=== PATIENT | male | born 1985 | race African-American/Black ===

== ENCOUNTER 2016-04-12 13:53 | Inpatient (IN) | payer BC ==
[2016-04-12 15:24] VITALS: BMI 28.3
--- NOTE | 2016-04-12 17:21 | HP ---
Admission [facility] - [facility] Allergies/Adverse Reactions: Allergies Allergy/AdvReac Type Severity Reaction Status Date / Time Penicillins Allergy Severe Swelling Verified 04/12/16 17:05 - Ebola screening Have you traveled outside of the country in the last 21 days: No Have you had contact with anyone from an Ebola affected area: No Have you been sick,other than usual withdrawal symptoms: No Do you have a fever: No Patient History - Patient Medical History Hx Anemia: No Hx Asthma: No Hx Chronic Obstructive Pulmonary Disease (COPD): No Hx Cancer: No Hx Cardiac Disorders: No Hx Congestive Heart Failure: No Hx Hypertension: No Hx Hypercholesterolemia: No Hx Pacemaker: No HX Cerebrovascular Accident: No Hx Seizures: No Hx Dementia: No Hx Diabetes: No Hx Gastrointestinal Disorders: No Hx Liver Disease: No Hx Genitourinary Disorders: No Hx Sexually Transmitted Disorders: No Hx Renal Disease (ESRD): No Hx Thyroid Disease: No Hx Human Immunodeficiency Virus (HIV): No Hx Hepatitis C: No Hx Depression: Yes Hx Suicide Attempt: No Hx Schizophrenia: No - Patient Surgical History Past Surgical History: No - PPD History Previous Implant?: Yes Documented Results: Negative w/o proof Implanted On Prior R Admission?: No Date: 03/06/16 Results: 0 mm - Reproductive History Patient is a Female of Child Bearing Age (11 -55 yrs old): No - Smoking Cessation Smoking history: Current every day smoker Have you smoked in the past 12 months: Yes Aproximately how many cigarettes per day: 20 Cigars Per Day: 0 Hx Chewing Tobacco Use: No Initiated information on smoking cessation: Yes 'Breaking Loose' booklet given: 04/12/16 - Substance & Tx. History Hx Alcohol Use: Yes Hx Substance Use: Yes Substance Use Type: Alcohol, Cocaine, Marijuana Hx Substance Use Treatment: Yes (I - 2015) - Substances Abused Alcohol Route: Oral Frequency: Daily Amount used: 1 liter deepali Age of first use: 13 Date of Last Use: 04/12/16 Crack Route: Smoking Frequency: Daily Amount used: 2 eightballs Age of first use: 18 Date of Last Use: 04/10/16 Marijuana/Hashish Route: Smoking Frequency: Daily Amount used: 1 blunt Age of first use: 13 Date of Last Use: 04/11/16 Admission Physical Exam [facility] - Vital Signs Vital Signs: Vital Signs - 24 hr 04/12/16 15:22 Temperature 97.5 F L Pulse Rate 45 L Respiratory 18 Rate Blood Pressure 117/65 BHS Breath Alcohol Content Breath Alcohol Content: 0 Urine Drug Screen - Results Drug Screen Negative: No Urine Drug Screen Results: THC-Marijuana, RHETT-Cocaine
--- NOTE | 2016-04-12 17:30 | HP ---
CIWA Score - CIWA Score Nausea/Vomitin Muscle Tremors: 3 Anxiety: 3 Agitation: 2 Paroxysmal Sweats: 3 Orientation: 0-Oriented Tacttile Disturbances: 1-Very Mild Itch/Numbness Auditory Disturbances: 0-None Visual Disturbances: 0-None Headache: 0-None Present CIWA-Ar Total Score: 15 Admission ROS [facility] - HPI Chief Complaint: I need help to stop drinking etoh and using crack Allergies/Adverse Reactions: Allergies Allergy/AdvReac Type Severity Reaction Status Date / Time Penicillins Allergy Severe Swelling Verified 04/12/16 17:05 History of Present Illness: 31 y/o m pt with a h/o chronic alcoholism and crack abuse seeking detox. Exam Limitations: No Limitations - Ebola screening Have you traveled outside of the country in the last 21 days: No Have you had contact with anyone from an Ebola affected area: No Have you been sick,other than usual withdrawal symptoms: No Do you have a fever: No - Review of Systems Constitutional: Malaise, Night Sweats, Changes in sleep, Unintentional Wgt. Loss (30 lbs x 2 months) EENT: reports: No Symptoms Reported Respiratory: reports: No Symptoms reported Cardiac: reports: No Symptoms Reported GI: reports: Indigestion : reports: Frequency Musculoskeletal: reports: No Symptoms Reported Integumentary: reports: No Symptoms Reported Neuro: reports: Headache, Tremors Endocrine: reports: No Symptoms Reported Hematology: reports: No Symptoms Reported Psychiatric: reports: Anxious, Depressed Other Systems: Reviewed and Negative Patient History - Patient Medical History Hx Anemia: No Hx Asthma: No Hx Chronic Obstructive Pulmonary Disease (COPD): No Hx Cancer: No Hx Cardiac Disorders: No Hx Congestive Heart Failure: No Hx Hypertension: No Hx Hypercholesterolemia: No Hx Pacemaker: No HX Cerebrovascular Accident: No Hx Seizures: No Hx Dementia: No Hx Diabetes: No Hx Gastrointestinal Disorders: No Hx Liver Disease: No Hx Genitourinary Disorders: No Hx Sexually Transmitted Disorders: No Hx Renal Disease (ESRD): No Hx Thyroid Disease: No Hx Human Immunodeficiency Virus (HIV): No Hx Hepatitis C: No Hx Depression: Yes Hx Suicide Attempt: No Hx Schizophrenia: No - Patient Surgical History Past Surgical History: No - PPD History Previous Implant?: Yes Documented Results: Negative w/o proof Implanted On Prior R Admission?: No Date: 03/06/16 Results: 0 mm - Reproductive History Patient is a Female of Child Bearing Age (11 -55 yrs old): No - Smoking Cessation Smoking history: Current every day smoker Have you smoked in the past 12 months: Yes Aproximately how many cigarettes per day: 20 Cigars Per Day: 0 Hx Chewing Tobacco Use: No Initiated information on smoking cessation: Yes 'Breaking Loose' booklet given: 04/12/16 - Substance & Tx. History Hx Alcohol Use: Yes Hx Substance Use: Yes Substance Use Type: Alcohol, Cocaine, Marijuana Hx Substance Use Treatment: Yes ([facility]) - Substances Abused Alcohol Route: Oral Frequency: Daily Amount used: 1 liter deepali Age of first use: 13 Date of Last Use: 04/12/16 Crack Route: Smoking Frequency: Daily Amount used: 2 eightballs Age of first use: 18 Date of Last Use: 04/10/16 Marijuana/Hashish Route: Smoking Frequency: Daily Amount used: 1 blunt Age of first use: 13 Date of Last Use: 04/11/16 Family Disease History - Family Disease History Family Disease History: Diabetes: Grandparent, Other: Father (htn ) Admission Physical Exam [facility] - Vital Signs Vital Signs: Vital Signs - 24 hr 04/12/16 15:22 Temperature 97.5 F L Pulse Rate 45 L Respiratory 18 Rate Blood Pressure 117/65 31 y/o m pt aox3 in nad ambulating - Physical General Appearance: Yes: Appropriately Dressed, Anxious HEENTM: Yes: EOMI, Hearing grossly Normal, Normocephalic, Normal Voice, CHAI Respiratory: Yes: Chest Non-Tender, Lungs Clear, Normal Breath Sounds, No Respiratory Distress Neck: Yes: Supple Breast: Yes: Within Normal Limits Cardiology: Yes: Regular Rhythm, Regular Rate, S1, S2 Abdominal: Yes: Non Tender, Flat, Soft, Increased Bowel Sounds Genitourinary: Yes: Frequency Back: Yes: Decreased Range of Motion Musculoskeletal: Yes: Back pain Extremities: Yes: Tremors Neurological: Yes: sports recruiter II-XII NML intact, Fully Oriented, Alert, Motor Strength 5/5, Normal Response, Depressed Affect Integumentary: Yes: Moist Lymphatic: Yes: Within Normal Limits - Diagnostic (1) Alcohol dependence with uncomplicated withdrawal Current Visit: Yes Status: Chronic (2) Cannabis abuse Current Visit: Yes Status: Chronic (3) Crack cocaine use Current Visit: Yes Status: Chronic (4) Nicotine dependence Current Visit: Yes Status: Chronic Qualifiers: Nicotine product type: cigarettes Substance use status: uncomplicated Qualified Code(s): F17.210 - Nicotine dependence, cigarettes, uncomplicated (5) Depressed Current Visit: Yes Status: Chronic Qualifiers: Depression Type: unspecified Qualified Code(s): F32.9 - Major depressive disorder, single episode, unspecified (6) Burn of lip Current Visit: Yes Status: Acute Cleared for Admission [facility] - Detox or Rehab [facility] Level of Care: Medically Managed Detox Regimen/Protocol: Librium [facility] Breath Alcohol Content Breath Alcohol Content: 0 Urine Drug Screen - Results Drug Screen Negative: No Urine Drug Screen Results: THC-Marijuana, RHETT-Cocaine
[2016-04-12] MEDS ORDERED: MENTHOL/PHENOL 1 EACH UD MM PRN (17:39)
[2016-04-12] MEDS ORDERED: ACETAMINOPHEN 325 MG TABLET (FP) PO PRN (17:39)
[2016-04-12] MEDS ORDERED: MAG HYDROX/AL HYDROX/SIMETH 30 ML UNIT-DOSE CUP PO PRN (17:39)
[2016-04-12] MEDS ORDERED: hydrOXYzine PAMOATE 25 MG CAPSULE (FP) PO PRN (17:39)
[2016-04-12] MEDS ORDERED: MAGNESIUM CITRATE 300 ML BOTTLE PO PRN (17:39)
[2016-04-12] MEDS ORDERED: IBUPROFEN 400 MG TABLET (FP) PO PRN (17:39)
[2016-04-12] MEDS ORDERED: guaiFENesin/D-METHORPHAN HB 10 ML UNIT-DOSE CUPS PO PRN (17:39)
[2016-04-12] MEDS ORDERED: P-EPHED 60MG/TRIPROLIDI 2.5MG TABLET PO PRN (17:39)
[2016-04-12] MEDS ORDERED: MAGNESIUM HYDROX 2400MG/30ML ORAL SUSPENSION 30 ML CUP PO PRN (17:39)
[2016-04-12] MEDS ORDERED: chlordiazePOXIDE HCL 25 MG CAPSULE PO PRN (17:39)
[2016-04-12] MEDS ORDERED: LOPERAMIDE HCL 2 MG CAPSULE PO PRN (17:39)
[2016-04-12] MEDS ORDERED: NICOTINE POLACRILEX 4 MG GUM BC PRN (17:39)
[2016-04-12] MEDS: THIAMINE HCL 100 MG TABLET (FP) PO SCH (22:20)
[2016-04-12] MEDS: diphenhydrAMINE HCL 50 MG CAPSULE PO PRN (22:20)
[2016-04-12] MEDS: chlordiazePOXIDE HCL 25 MG CAPSULE PO SCH (22:20)
[2016-04-12 23:04] LABS: URINE APPEARANCE CLEAR; URINE BILIRUBIN NEGATIVE (NEGATIVE); URINE BLOOD NEGATIVE (NEGATIVE); URINE COLOR DKYELLOW; URINE GLUCOSE (UA) 2+ (NEGATIVE); URINE KETONE TRACE (NEGATIVE); URINE LEUK ESTERASE NEGATIVE (NEGATIVE); URINE NITRITE NEGATIVE (NEGATIVE); URINE PROTEIN NEGATIVE (NEGATIVE); URINE UROBILINOGEN 4.0 E.U/dl E.U./dl (0.2-1.0)
[2016-04-13] MEDS: chlordiazePOXIDE HCL 25 MG CAPSULE PO SCH ×4 (06:13→22:29)
[2016-04-13 10:08] LABS: MCH 29.7 pg (25.7-33.7); MCHC 31.6 g/dl (32.0-35.9); MEAN PLT VOLUME 10.1 fl (7.5-11.1); PLATELET COUNT 171 K/MM3 (134-434); RDW 12.9 % (11.9-15.9); WHITE BLOOD COUNT 3.4 K/mm3 (4.0-10.0)
[2016-04-13] MEDS: NICOTINE 21 MG/24 HOURS TOPICAL PATCH TD SCH (10:11)
[2016-04-13] MEDS: PRENATAL VITAMINS W/ FOLIC ACID TABLET (FP) PO SCH (10:11)
[2016-04-13 10:29] LABS: ALBUMIN 4.3 g/dl (3.4-5.0); BILIRUBIN,TOTAL 1.4 mg/dL (0.2-1.0); CALCIUM 9.1 mg/dL (8.5-10.1); CREATININE 1.4 mg/dL (0.7-1.3); TOT PROT 7.4 g/dl (6.4-8.2)
--- NOTE | 2016-04-13 10:31 | PN ---
[facility] CIWA - CIWA Score Nausea/Vomitin-No Nausea/No Vomiting Muscle Tremors: 4-Moderate,w/Arms Extend Anxiety: 4-Mod. Anxious/Guarded Agitation: 4-Moderately Restless Paroxysmal Sweats: 1-Minimal Palms Moist Orientation: 0-Oriented Tacttile Disturbances: 3-Moderate Itch/Numb/Burn Auditory Disturbances: 0-None Visual Disturbances: 0-None Headache: 0-None Present CIWA-Ar Total Score: 16 S Progress Note (SOAP) Subjective: ANXIETY, CHILLS,SWEATS,INTERMITTENT SLEEP Objective: 04/13/16 10:28 Vital Signs Temperature 96.5 F L 04/13/16 06:31 Pulse Rate 41 L 04/13/16 06:31 Respiratory Rate 16 04/13/16 06:31 Blood Pressure 108/66 04/13/16 06:31 O2 Sat by Pulse Oximetry (%) Laboratory Last Values WBC 3.4 K/mm3 (4.0-10.0) L 04/13/16 06:20 RBC 4.64 M/mm3 (4.00-5.60) 04/13/16 06:20 Hgb 13.8 GM/dL (11.7-16.9) 04/13/16 06:20 Hct 43.6 % (35.4-49) 04/13/16 06:20 MCV 94.0 fl (80-96) 04/13/16 06:20 MCHC 31.6 g/dl (32.0-35.9) L 04/13/16 06:20 RDW 12.9 % (11.9-15.9) 04/13/16 06:20 Plt Count 171 K/MM3 (134-434) 04/13/16 06:20 MPV 10.1 fl (7.5-11.1) 04/13/16 06:20 Urine Color Dkyellow 04/12/16 21:53 Urine Appearance Clear 04/12/16 21:53 Urine pH 5.0 (5.0-8.0) 04/12/16 21:53 Ur Specific [place] 1.032 (1.001-1.035) 04/12/16 21:53 Urine Protein Negative (NEGATIVE) 04/12/16 21:53 Urine Glucose (UA) 2+ (NEGATIVE) H 04/12/16 21:53 Urine Ketones Trace (NEGATIVE) H 04/12/16 21:53 Urine Blood Negative (NEGATIVE) 04/12/16 21:53 Urine Nitrite Negative (NEGATIVE) 04/12/16 21:53 Urine Bilirubin Negative (NEGATIVE) 04/12/16 21:53 Urine Urobilinogen 4.0 e.u/dl E.U./dl (0.2-1.0) 04/12/16 21:53 Ur Leukocyte Esterase Negative (NEGATIVE) 04/12/16 21:53 Assessment: 04/13/16 10:28 WITHDRAWAL SX Plan: CONTINUE DETOX INCREASE PO FLUIDS.
[2016-04-13 11:38] LABS: HIV 1 & 2 AB NEGATIVE; HIV 1 AGp24 NEGATIVE
--- NOTE | 2016-04-13 12:28 | CONSULT ---
[facility] Psychiatric Consult - Data Date of interview: 04/13/16 Admission source: [facility] Identifying data: First admission to [facility] for this 31 y/o AA male seeking detox treatment on for alcohol,cocaine (crack) and marijuana dependence.Patient is single,a father of two,domiciled,unemployed and supported on Public Assistance. Substance Abuse History: - Smoking Cessation. Smoking history: Current every day smoker. Have you smoked in the past 12 months: Yes. Aproximately how many cigarettes per day: 20. Cigars Per Day: 0. Hx Chewing Tobacco Use: No. Initiated information on smoking cessation: Yes. 'Breaking Loose' booklet given : 04/12/16. - Substance & Tx. History. Hx Alcohol Use: Yes. Hx Substance Use : Yes. Substance Use Type: Alcohol, Cocaine, Marijuana. Hx Substance Use Treatment: Yes ([facility]). - Substances Abused. Alcohol. Route: Oral. Frequency: Daily. Amount used: 1 liter deepali. Age of first use: 13. Date of Last Use: 04/12/16. Crack. Route: Smoking. Frequency: Daily. Amount used : 2 eightballs. Age of first use: 18. Date of Last Use: 04/10/16. Marijuana/Hashish. Route: Smoking. Frequency: Daily. Amount used: 1 blunt. Age of first use: 13. Date of Last Use: 04/11/16. Confirmed by the patient in this interview. Medical History: Patient endorses good general health. Psychiatric History: History of one psychiatric hospitalization at [facility].Diagnosed with MDD.Mr North reports that he gets his psychiatric outpatient services at the [facility] in the [place].Not on any psychotropic medications.Patient denies history of suicide attempts. Physical/Sexual Abuse/Trauma History: No history. Additional Comment: Urine Drug Screen Results: THC-Marijuana, RHETT-Cocaine.Noted. Mental Status Exam - Mental Status Exam Alert and Oriented to: Time, Place, Person Cognitive Function: Good Patient Appearance: Well Groomed Mood: Hopeful, Euthymic Affect: Normal Range Patient Behavior: Fatigued, Appropriate, Cooperative Speech Pattern: Clear Voice Loudness: Normal Thought Process: Goal Oriented Thought Disorder: Not Present Hallucinations: Denies Suicidal Ideation: Denies Homicidal Ideation: Denies Insight/Judgement: Poor Sleep: Poorly, Difficulty falling asleep Appetite: Good Muscle strength/Tone: Normal Gait/Station: Normal Psychiatric Findings - Problem List (Stacy 1, 2,3) (1) Alcohol dependence with uncomplicated withdrawal Current Visit: Yes Status: Acute (2) Cannabis abuse Current Visit: Yes Status: Acute (3) Nicotine dependence Current Visit: Yes Status: Acute Qualifiers: Nicotine product type: cigarettes Substance use status: uncomplicated Qualified Code(s): F17.210 - Nicotine dependence, cigarettes, uncomplicated (4) Cocaine dependence Current Visit: Yes Status: Acute (5) Substance induced mood disorder Current Visit: Yes Status: Acute (6) Insomnia Current Visit: Yes Status: Chronic - Initial Treatment Plan Initial Treatment Plan: Psychoeducation.Detoxification.Zolpidem 10 mg po hs prn.Patient made aware of risk of parasomnias.He agrees with this plan.Observation.
[2016-04-13] MEDS ORDERED: BACITRACIN 0.9 GM PACKET TP ONE (14:12)
--- NOTE | 2016-04-13 16:12 | EKG ---
Test Reason : Blood Pressure : / mmHG Vent. Rate : 048 BPM Atrial Rate : 048 BPM P-R Int : 184 ms QRS Dur : 090 ms QT Int : 460 ms P-R-T Axes : 072 057 054 degrees QTc Int : 410 ms SINUS BRADYCARDIA WITH FREQUENT PREMATURE VENTRICULAR COMPLEXES OTHERWISE NORMAL ECG NO PREVIOUS ECGS AVAILABLE Confirmed by ROXANA MORROW, GOPI ([id number]) on 04/13/2016 4:12:08 PM Referred By: Confirmed By:GOPI SCHMIDT MD
[2016-04-13] MEDS: THIAMINE HCL 100 MG TABLET (FP) PO SCH (22:29)
[2016-04-13] MEDS: diphenhydrAMINE HCL 50 MG CAPSULE PO PRN (22:29)
[2016-04-14] MEDS: chlordiazePOXIDE HCL 25 MG CAPSULE PO SCH ×3 (05:50→17:26)
[2016-04-14] MEDS: PRENATAL VITAMINS W/ FOLIC ACID TABLET (FP) PO SCH (10:19)
[2016-04-14] MEDS: NICOTINE 21 MG/24 HOURS TOPICAL PATCH TD SCH (10:19)
--- NOTE | 2016-04-14 10:24 | PN ---
[facility] CIWA - CIWA Score Nausea/Vomitin-No Nausea/No Vomiting Muscle Tremors: 3 Anxiety: 4-Mod. Anxious/Guarded Agitation: 4-Moderately Restless Paroxysmal Sweats: 1-Minimal Palms Moist Orientation: 0-Oriented Tacttile Disturbances: 3-Moderate Itch/Numb/Burn Auditory Disturbances: 0-None Visual Disturbances: 0-None Headache: 0-None Present CIWA-Ar Total Score: 15 S Progress Note (SOAP) Subjective: ANXIETY,SWEATS/CHILLS,IRRITABILITY,FATIGUE. Objective: 04/14/16 10:23 Vital Signs Temperature 95.9 F L 04/14/16 09:53 Pulse Rate 63 04/14/16 09:53 Respiratory Rate 18 04/14/16 09:53 Blood Pressure 137/82 04/14/16 09:53 O2 Sat by Pulse Oximetry (%) Laboratory Last Values WBC 3.4 K/mm3 (4.0-10.0) L 04/13/16 06:20 RBC 4.64 M/mm3 (4.00-5.60) 04/13/16 06:20 Hgb 13.8 GM/dL (11.7-16.9) 04/13/16 06:20 Hct 43.6 % (35.4-49) 04/13/16 06:20 MCV 94.0 fl (80-96) 04/13/16 06:20 MCHC 31.6 g/dl (32.0-35.9) L 04/13/16 06:20 RDW 12.9 % (11.9-15.9) 04/13/16 06:20 Plt Count 171 K/MM3 (134-434) 04/13/16 06:20 MPV 10.1 fl (7.5-11.1) 04/13/16 06:20 Sodium 143 mmol/L (136-145) 04/13/16 06:20 Potassium 4.3 mmol/L (3.5-5.1) 04/13/16 06:20 Chloride 108 mmol/L (98-107) H 04/13/16 06:20 Carbon Dioxide 28 mmol/L (21-32) 04/13/16 06:20 Anion Gap 7 (8-16) L 04/13/16 06:20 BUN 19 mg/dL (7-18) H 04/13/16 06:20 Creatinine 1.4 mg/dL (0.7-1.3) H 04/13/16 06:20 Creat Clearance w eGFR 59.92 (>60) 04/13/16 06:20 Random Glucose 87 mg/dL (74-106) 04/13/16 06:20 Calcium 9.1 mg/dL (8.5-10.1) 04/13/16 06:20 Total Bilirubin 1.4 mg/dL (0.2-1.0) H 04/13/16 06:20 AST 14 U/L (15-37) L 04/13/16 06:20 ALT 22 U/L (12-78) 04/13/16 06:20 Alkaline Phosphatase 74 U/L (45-117) 04/13/16 06:20 Total Protein 7.4 g/dl (6.4-8.2) 04/13/16 06:20 Albumin 4.3 g/dl (3.4-5.0) 04/13/16 06:20 Urine Color Dkyellow 04/12/16 21:53 Urine Appearance Clear 04/12/16 21:53 Urine pH 5.0 (5.0-8.0) 04/12/16 21:53 Ur Specific [place] 1.032 (1.001-1.035) 04/12/16 21:53 Urine Protein Negative (NEGATIVE) 04/12/16 21:53 Urine Glucose (UA) 2+ (NEGATIVE) H 04/12/16 21:53 Urine Ketones Trace (NEGATIVE) H 04/12/16 21:53 Urine Blood Negative (NEGATIVE) 04/12/16 21:53 Urine Nitrite Negative (NEGATIVE) 04/12/16 21:53 Urine Bilirubin Negative (NEGATIVE) 04/12/16 21:53 Urine Urobilinogen 4.0 e.u/dl E.U./dl (0.2-1.0) 04/12/16 21:53 Ur Leukocyte Esterase Negative (NEGATIVE) 04/12/16 21:53 RPR Titer Nonreactive (NONREACTIVE) 04/13/16 06:20 HIV 1&2 Antibody Screen Negative 04/12/16 17:15 HIV P24 Antigen Negative 04/12/16 17:15 Assessment: 04/14/16 10:23 WITHDRAWAL SX Plan: CONTINUE DETOX
[2016-04-14] MEDS: THIAMINE HCL 100 MG TABLET (FP) PO SCH (22:03)
[2016-04-14] MEDS: chlordiazePOXIDE 5 MG CAPSULE PO SCH (22:03)
[2016-04-14] MEDS: ZOLPIDEM TARTRATE 10 MG TABLET (PARK CARE ONLY) PO PRN (22:06)
[2016-04-15] MEDS: chlordiazePOXIDE 5 MG CAPSULE PO SCH ×3 (05:26→17:07)
[2016-04-15] MEDS: PRENATAL VITAMINS W/ FOLIC ACID TABLET (FP) PO SCH (10:20)
[2016-04-15] MEDS: NICOTINE 21 MG/24 HOURS TOPICAL PATCH TD SCH (10:21)
--- NOTE | 2016-04-15 10:23 | PN ---
BHS Progress Note (SOAP) Subjective: ANXIETY,SWEATS,IRRITABILITY. Objective: 04/15/16 10:22 Vital Signs Temperature 96.5 F L 04/15/16 06:37 Pulse Rate 58 L 04/15/16 06:37 Respiratory Rate 18 04/15/16 06:37 Blood Pressure 129/79 04/15/16 06:37 O2 Sat by Pulse Oximetry (%) Assessment: 04/15/16 10:22 WITHDRAWAL SX Plan: CONTINUE DETOX
[2016-04-15 21:49] VITALS: BP 129/72; PULSE 64; TEMP 97.5
[2016-04-15] MEDS: chlordiazePOXIDE HCL 10 MG CAPSULE PO SCH (22:06)
[2016-04-15] MEDS: THIAMINE HCL 100 MG TABLET (FP) PO SCH (22:07)
[2016-04-15] MEDS: diphenhydrAMINE HCL 50 MG CAPSULE PO PRN (22:08)
[2016-04-15] MEDS: ZOLPIDEM TARTRATE 10 MG TABLET (PARK CARE ONLY) PO PRN (23:04)
[2016-04-16] MEDS: chlordiazePOXIDE HCL 10 MG CAPSULE PO SCH (06:45)
--- NOTE | 2016-04-16 10:12 | DS ---
[facility] Detox Discharge Summary Admission Date: 04/12/16 Discharge Date: 04/16/16 - History Present History: Alcohol Dependence, Cannabis Dependence, Cocaine Dependence Pertinent Past History: smoker - Physical Exam Results Vital Signs: Vital Signs Temperature 97.5 F L 04/15/16 21:49 Pulse Rate 64 04/15/16 21:49 Respiratory Rate 18 04/16/16 03:30 Blood Pressure 129/72 04/15/16 21:49 O2 Sat by Pulse Oximetry (%) Laboratory Last Values WBC 3.4 K/mm3 (4.0-10.0) L 04/13/16 06:20 RBC 4.64 M/mm3 (4.00-5.60) 04/13/16 06:20 Hgb 13.8 GM/dL (11.7-16.9) 04/13/16 06:20 Hct 43.6 % (35.4-49) 04/13/16 06:20 MCV 94.0 fl (80-96) 04/13/16 06:20 MCHC 31.6 g/dl (32.0-35.9) L 04/13/16 06:20 RDW 12.9 % (11.9-15.9) 04/13/16 06:20 Plt Count 171 K/MM3 (134-434) 04/13/16 06:20 MPV 10.1 fl (7.5-11.1) 04/13/16 06:20 Sodium 143 mmol/L (136-145) 04/13/16 06:20 Potassium 4.3 mmol/L (3.5-5.1) 04/13/16 06:20 Chloride 108 mmol/L (98-107) H 04/13/16 06:20 Carbon Dioxide 28 mmol/L (21-32) 04/13/16 06:20 Anion Gap 7 (8-16) L 04/13/16 06:20 BUN 19 mg/dL (7-18) H 04/13/16 06:20 Creatinine 1.4 mg/dL (0.7-1.3) H 04/13/16 06:20 Creat Clearance w eGFR 59.92 (>60) 04/13/16 06:20 Random Glucose 87 mg/dL (74-106) 04/13/16 06:20 Calcium 9.1 mg/dL (8.5-10.1) 04/13/16 06:20 Total Bilirubin 1.4 mg/dL (0.2-1.0) H 04/13/16 06:20 AST 14 U/L (15-37) L 04/13/16 06:20 ALT 22 U/L (12-78) 04/13/16 06:20 Alkaline Phosphatase 74 U/L (45-117) 04/13/16 06:20 Total Protein 7.4 g/dl (6.4-8.2) 04/13/16 06:20 Albumin 4.3 g/dl (3.4-5.0) 04/13/16 06:20 Urine Color Dkyellow 04/12/16 21:53 Urine Appearance Clear 04/12/16 21:53 Urine pH 5.0 (5.0-8.0) 04/12/16 21:53 Ur Specific [place] 1.032 (1.001-1.035) 04/12/16 21:53 Urine Protein Negative (NEGATIVE) 04/12/16 21:53 Urine Glucose (UA) 2+ (NEGATIVE) H 04/12/16 21:53 Urine Ketones Trace (NEGATIVE) H 04/12/16 21:53 Urine Blood Negative (NEGATIVE) 04/12/16 21:53 Urine Nitrite Negative (NEGATIVE) 04/12/16 21:53 Urine Bilirubin Negative (NEGATIVE) 04/12/16 21:53 Urine Urobilinogen 4.0 e.u/dl E.U./dl (0.2-1.0) 04/12/16 21:53 Ur Leukocyte Esterase Negative (NEGATIVE) 04/12/16 21:53 RPR Titer Nonreactive (NONREACTIVE) 04/13/16 06:20 HIV 1&2 Antibody Screen Negative 04/12/16 17:15 HIV P24 Antigen Negative 04/12/16 17:15 Pertinent Admission Physical Exam Findings: Withdrawal Symptoms - Treatment Hospital Course: Detox Protocol Followed, Detoxed Safely, Responded well, Discharged Condition Good - Medication Discharge Medications: Ambulatory Orders NK [No Known Home Medication] 04/12/16 - Diagnosis (1) Alcohol dependence with uncomplicated withdrawal Status: Acute (2) Cannabis abuse Status: Acute (3) Cocaine dependence Status: Acute (4) Nicotine dependence Status: Acute Qualifiers: Nicotine product type: cigarettes Substance use status: uncomplicated Qualified Code(s): F17.210 - Nicotine dependence, cigarettes, uncomplicated (5) Substance induced mood disorder Status: Acute (6) Crack cocaine use Status: Chronic (7) Insomnia Status: Chronic - AMA Did Patient Leave Against Medical Advice: No
== END 2016-04-16 08:58 | disposition home or self-care (01) | DRG 774 ==
LOC: YASAS 13:53 → Y3N 18:05
PROVIDERS: ADMIT Internal Medicine; ATTEND Internal Medicine
PROC: HZ2ZZZZ Detoxification Services for Substance Abuse Treatment (ICD-10-PCS; principal; 2016-04-12)
DX: F10.230 Alcohol dependence with withdrawal, uncomplicated (principal); F14.20 Cocaine dependence, uncomplicated; F12.10 Cannabis abuse, uncomplicated; F17.210 Nicotine dependence, cigarettes, uncomplicated; F19.24 Other psychoactive substance dependence with psychoactive substance-induced mood disorder; F32.9 Major depressive disorder, single episode, unspecified; G47.00 Insomnia, unspecified
CPT/HCPCS: 36415; 80053; 81003; 85027; 86593; 87389; 93005; 93010

== ENCOUNTER 2016-04-29 09:22 | Inpatient (IN) | payer BC ==
[2016-04-29 11:04] VITALS: BMI 28.0
--- NOTE | 2016-04-29 12:34 | HP ---
Admission [facility] Chief Complaint: FOR REHAB FROM ALCOHOL AND COCAINE Allergies/Adverse Reactions: Allergies Allergy/AdvReac Type Severity Reaction Status Date / Time Penicillins Allergy Severe Swelling Verified 04/29/16 11:27 History of Present Illness: THIS 31 YEARS OLD MALE WIH ALCOHOL AND COCAINE DEPENDENCE,LAST DETOX 04/12/16 TO 04/16/16 HAD INCISION AND DRAINAGE OF ABSCESS OF RIGHT LEG AND LEFT THIGH AT [facility] 0N 03/29/16 NICOTINE DEPENDENCE DEPRESSION LONGEST PERIOD OF SOBRIETY 2 YEARS Exam Limitations: No Limitations - Ebola screening Have you traveled outside of the country in the last 21 days: No Have you been sick,other than usual withdrawal symptoms: No - Review of Systems Constitutional: No Symptoms Reported EENT: reports: No Symptoms Reported Respiratory: reports: No Symptoms reported Cardiac: reports: No Symptoms Reported GI: reports: No Symptoms Reported : reports: No Symptoms Reported Musculoskeletal: reports: No Symptoms Reported Integumentary: reports: No Symptoms Reported, Other (ABSCESS OF RIGHT LEG AND LEFT THIGH) Neuro: reports: No Symptoms reported Endocrine: reports: No Symptoms Reported Hematology: reports: No Symptoms Reported Psychiatric: reports: other (DEPRESSION) Patient History - Patient Medical History Hx Anemia: No Hx Asthma: No Hx Chronic Obstructive Pulmonary Disease (COPD): No Hx Cancer: No Hx Cardiac Disorders: No Hx Congestive Heart Failure: No Hx Hypertension: No Hx Hypercholesterolemia: No Hx Pacemaker: No HX Cerebrovascular Accident: No Hx Seizures: No Hx Dementia: No Hx Diabetes: No Hx Gastrointestinal Disorders: No Hx Liver Disease: No Hx Genitourinary Disorders: No Hx Sexually Transmitted Disorders: No Hx Renal Disease (ESRD): No Hx Thyroid Disease: No Hx Human Immunodeficiency Virus (HIV): No (LAST 04/12/16 NEGATIVE) Hx Hepatitis C: No Hx Depression: Yes Hx Suicide Attempt: No Hx Schizophrenia: No Other Medical History: NO SUICIDAL,NO HOMICIDAL, - Patient Surgical History Past Surgical History: Yes Other Surgical History: DRAINAGSDE OF ABSCESS OF RIGHT LEG AND LEFT THIGH - PPD History Previous Implant?: Yes Documented Results: Negative w/proof Date: 04/14/16 Results: 0 mm PPD to be Administered?: No - Smoking Cessation Smoking history: Current every day smoker Have you smoked in the past 12 months: Yes Aproximately how many cigarettes per day: 20 Cigars Per Day: 0 Hx Chewing Tobacco Use: No Initiated information on smoking cessation: Yes 'Breaking Loose' booklet given: 04/29/16 - Substance & Tx. History Hx Alcohol Use: Yes Hx Substance Use: Yes Substance Use Type: Alcohol, Cocaine Hx Substance Use Treatment: Yes ([facility] 04/12/16 TO 04/16/16) - Substances Abused Alcohol Route: Oral Frequency: Daily Amount used: 2PINTS OF VODKA Age of first use: 14 Date of Last Use: 04/12/16 Cocaine Route: Inhalation Frequency: 3-6 times per week Amount used: 120$ Age of first use: 16 Date of Last Use: 04/27/16 Family Disease History - Family Disease History Family Disease History: Diabetes: Grandparent, Other: Father (htn ) Admission Physical Exam [facility] - Vital Signs Vital Signs: Vital Signs - 24 hr 04/29/16 11:02 Temperature 96.0 F L Pulse Rate 62 Respiratory 18 Rate Blood Pressure 123/70 - Physical General Appearance: Yes: Within Normal Limits HEENTM: Yes: Within Normal Limits Respiratory: Yes: Lungs Clear Neck: Yes: Within Normal Limits Breast: Yes: Within Normal Limits Cardiology: Yes: Within Normal Limits, Regular Rhythm, Regular Rate, S1, S2 Abdominal: Yes: Within Normal Limits, Normal Bowel Sounds, Non Tender, Flat, Soft Genitourinary: Yes: Within Normal Limits Back: Yes: Within Normal Limits Musculoskeletal: Yes: Within Normal Limits Extremities: Yes: Within Normal Limits Neurological: Yes: health and safety coordinator II-XII NML intact, Fully Oriented, Alert, Motor Strength 5/5 Integumentary: Yes: Within Normal Limits (S/P I&D OF ABSCESS RIGHT LEG AND LEFT THIGH) Lymphatic: Yes: Within Normal Limits - Diagnostic (1) Cocaine dependence Current Visit: No Status: Acute (2) Alcohol dependence Current Visit: Yes Status: Acute (3) Nicotine dependence Current Visit: No Status: Acute Qualifiers: Nicotine product type: cigarettes Substance use status: uncomplicated Qualified Code(s): F17.210 - Nicotine dependence, cigarettes, uncomplicated (4) History of incision and drainage Current Visit: Yes Status: Acute (5) Abscess Current Visit: Yes Status: Acute (6) Depressed Current Visit: No Status: Chronic Qualifiers: Depression Type: unspecified Qualified Code(s): F32.9 - Major depressive disorder, single episode, unspecified Cleared for Admission [facility] - Detox or Rehab Claeared for Rehab Admission: Yes [facility] Breath Alcohol Content Breath Alcohol Content: 0 Urine Drug Screen - Results Drug Screen Negative: No Urine Drug Screen Results: THC-Marijuana, RHETT-Cocaine, BZO-Benzodiazepines
[2016-04-29] MEDS ORDERED: guaiFENesin/D-METHORPHAN HB 10 ML UNIT-DOSE CUPS PO PRN (12:47)
[2016-04-29] MEDS ORDERED: MENTHOL/PHENOL 1 EACH UD MM PRN (12:47)
[2016-04-29] MEDS ORDERED: LOPERAMIDE HCL 2 MG CAPSULE PO PRN (12:47)
[2016-04-29] MEDS ORDERED: NICOTINE POLACRILEX 2 MG GUM BUC PRN (12:47)
[2016-04-29] MEDS ORDERED: P-EPHED 60MG/TRIPROLIDI 2.5MG TABLET PO PRN (12:47)
[2016-04-29] MEDS ORDERED: MAGNESIUM HYDROX 2400MG/30ML ORAL SUSPENSION 30 ML CUP PO PRN (12:47)
[2016-04-29] MEDS ORDERED: MAGNESIUM CITRATE 300 ML BOTTLE PO PRN (12:47)
[2016-04-29] MEDS ORDERED: MAG HYDROX/AL HYDROX/SIMETH 30 ML UNIT-DOSE CUP PO PRN (12:47)
[2016-04-29] MEDS ORDERED: hydrOXYzine PAMOATE 50 MG CAPSULE (FP) PO PRN (12:47)
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
[2016-04-29] MEDS: IBUPROFEN 400 MG TABLET (FP) PO PRN (15:38)
[2016-04-29] MEDS: CEPHALEXIN MONOHYDRATE 500 MG CAPSULE (UD) PO SCH (17:44)
[2016-04-29 19:06] LABS: URINE APPEARANCE CLEAR; URINE BLOOD NEGATIVE (NEGATIVE); URINE COLOR AMBER; URINE GLUCOSE (UA) 1+ (NEGATIVE); URINE KETONE TRACE (NEGATIVE); URINE NITRITE NEGATIVE (NEGATIVE); URINE UROBILINOGEN 4.0 E.U/dl E.U./dl (0.2-1.0)
[2016-04-29 19:14] LABS: URINE LEUK ESTERASE TRACE (NEGATIVE); URINE PROTEIN 1+ (NEGATIVE)
[2016-04-29 19:41] LABS: URINE MUCUS MANY; URINE RBC 6 /hpf (0-3); URINE WBC 1 /hpf (3-5)
[2016-04-29] MEDS: ACETAMINOPHEN 325 MG TABLET (FP) PO PRN (20:52)
[2016-04-29] MEDS: THIAMINE HCL 100 MG TABLET (FP) PO SCH (21:03)
[2016-04-29] MEDS: BACITRACIN 0.9 GM PACKET TP SCH (21:03)
[2016-04-29] MEDS: risperiDONE 2 MG TABLET PO SCH (21:04)
[2016-04-29] MEDS: traZODone HCL 50 MG TABLET (FP) PO SCH (21:04)
[2016-04-29] MEDS: SULFAMETHOXAZOLE/TRIMETHOPRIM 800MG/160MG D.S. TABLET PO SCH (21:04)
[2016-04-29] MEDS: DIVALPROEX SODIUM 250 MG TABLET E.C. (FP) PO SCH (21:04)
[2016-04-30] MEDS: CEPHALEXIN MONOHYDRATE 500 MG CAPSULE (UD) PO SCH ×6 (00:02→23:05)
[2016-04-30] MEDS: ACETAMINOPHEN 325 MG TABLET (FP) PO PRN (08:21)
[2016-04-30] MEDS: BACITRACIN 0.9 GM PACKET TP SCH ×2 (10:15→21:25)
[2016-04-30] MEDS: DIVALPROEX SODIUM 250 MG TABLET E.C. (FP) PO SCH ×2 (10:15→21:25)
[2016-04-30] MEDS: PRENATAL VITAMINS W/ FOLIC ACID TABLET (FP) PO SCH (10:15)
[2016-04-30] MEDS: SULFAMETHOXAZOLE/TRIMETHOPRIM 800MG/160MG D.S. TABLET PO SCH ×2 (10:15→21:24)
[2016-04-30] MEDS: IBUPROFEN 400 MG TABLET (FP) PO PRN ×2 (10:17→20:41)
--- NOTE | 2016-04-30 15:02 | EKG ---
Test Reason : Blood Pressure : / mmHG Vent. Rate : 053 BPM Atrial Rate : 053 BPM P-R Int : 192 ms QRS Dur : 094 ms QT Int : 428 ms P-R-T Axes : 057 046 039 degrees QTc Int : 401 ms SINUS BRADYCARDIA NONSPECIFIC ST ABNORMALITY ABNORMAL ECG WHEN COMPARED WITH ECG OF 12-APR-2016 18:56, PREMATURE VENTRICULAR COMPLEXES ARE NO LONGER PRESENT POOR DATA QUALITY, INTERPRETATION MAY BE ADVERSELY AFFECTED Confirmed by SUZANNE GUERIN MD ([id number]) on 04/30/2016 3:01:42 PM Referred By: Confirmed By:SUZANNE GUERIN MD
[2016-04-30] MEDS: THIAMINE HCL 100 MG TABLET (FP) PO SCH (21:24)
[2016-04-30] MEDS: diphenhydrAMINE HCL 50 MG CAPSULE PO PRN (21:24)
[2016-04-30] MEDS: traZODone HCL 50 MG TABLET (FP) PO SCH (21:25)
[2016-04-30] MEDS: risperiDONE 2 MG TABLET PO SCH (21:25)
[2016-05-01] MEDS: CEPHALEXIN MONOHYDRATE 500 MG CAPSULE (UD) PO SCH ×5 (06:36→23:16)
[2016-05-01] MEDS: SULFAMETHOXAZOLE/TRIMETHOPRIM 800MG/160MG D.S. TABLET PO SCH ×2 (10:08→22:58)
[2016-05-01] MEDS: BACITRACIN 0.9 GM PACKET TP SCH ×2 (10:08→22:58)
[2016-05-01] MEDS: DIVALPROEX SODIUM 250 MG TABLET E.C. (FP) PO SCH ×2 (10:08→22:58)
[2016-05-01] MEDS: PRENATAL VITAMINS W/ FOLIC ACID TABLET (FP) PO SCH (10:09)
[2016-05-01] MEDS: ACETAMINOPHEN 325 MG TABLET (FP) PO PRN (12:37)
[2016-05-01] MEDS: traZODone HCL 50 MG TABLET (FP) PO SCH (22:58)
[2016-05-01] MEDS: THIAMINE HCL 100 MG TABLET (FP) PO SCH (22:59)
[2016-05-01] MEDS: risperiDONE 2 MG TABLET PO SCH ×2 (22:59→23:16)
[2016-05-01] MEDS: diphenhydrAMINE HCL 50 MG CAPSULE PO PRN (23:16)
[2016-05-02] MEDS: CEPHALEXIN MONOHYDRATE 500 MG CAPSULE (UD) PO SCH ×4 (06:37→23:49)
[2016-05-02] MEDS: DIVALPROEX SODIUM 250 MG TABLET E.C. (FP) PO SCH ×2 (10:15→21:55)
[2016-05-02] MEDS: BACITRACIN 0.9 GM PACKET TP SCH ×2 (10:15→21:55)
[2016-05-02] MEDS: SULFAMETHOXAZOLE/TRIMETHOPRIM 800MG/160MG D.S. TABLET PO SCH ×2 (10:15→21:55)
[2016-05-02] MEDS: PRENATAL VITAMINS W/ FOLIC ACID TABLET (FP) PO SCH (10:15)
[2016-05-02] MEDS: IBUPROFEN 400 MG TABLET (FP) PO PRN ×2 (10:18→20:12)
--- NOTE | 2016-05-02 11:54 | PN ---
Psychiatric Progress Note Vital Signs: Vital Signs Period Temp Pulse Resp BP Sys/Landa Pulse Ox Last 24 Hr 97.4 F 55 16-18 127/65 Date of Session: 05/02/16 Chief Complaint:: Poor sleep due to stuffy nose HPI: Patient addresing Alcohol and Cocaine Dependence, Cannabis Abuse comorbid with Nicotine Dependence, ADHD and MDD Current Medications: Active Medications Generic Name Dose Route Start Last Admin Trade Name Freq PRN Reason Stop Dose Admin Acetaminophen 650 mg 04/29/16 12:47 05/01/16 12:37 Tylenol - PO 650 mg Q4H PRN Administration PAIN Al Hydroxide/Mg Hydroxide 30 ml 04/29/16 12:47 Mylanta Oral Suspension - PO Q6H PRN DYSPEPSIA Bacitracin 0.9 gm 04/29/16 22:00 05/02/16 10:15 Bacitracin - TP 0.9 gm BID MIKI Administration Cephalexin HCl 500 mg 04/29/16 18:00 05/02/16 06:37 Keflex - PO 500 mg Q6HPO MIKI Administration Diphenhydramine HCl 50 mg 04/29/16 12:47 05/01/16 23:16 Benadryl - PO 50 mg HSMR1 PRN Administration INSOMNIA Divalproex Sodium 250 mg 04/29/16 22:00 05/02/16 10:15 Depakote - PO 250 mg BID MIKI Administration Eucalyptus/Menthol/Phenol/Sorbitol 1 each 04/29/16 12:47 Cepastat Lozenge - MM Q4H PRN SORE THROAT Guaifenesin 10 ml 04/29/16 12:47 Robitussin Dm - PO Q6H PRN COUGH Hydroxyzine Pamoate 50 mg 04/29/16 12:47 Vistaril - PO Q4H PRN AGITATION Ibuprofen 400 mg 04/29/16 12:47 05/02/16 10:18 Motrin - PO 400 mg Q6H PRN Administration SEVERE PAIN Loperamide HCl 4 mg 04/29/16 12:47 Imodium - PO Q6H PRN DIARRHEA Magnesium Citrate 300 ml 04/29/16 12:47 Citroma - PO Q48H PRN CONSTIPATION Magnesium Hydroxide 30 ml 04/29/16 12:47 Milk Of Magnesia - PO DAILY PRN CONSTIPATION Nicotine 21 mg 04/29/16 14:17 05/02/16 10:16 Nicoderm Patch - TD Not Given DAILY MIKI Nicotine Polacrilex 2 mg 04/29/16 12:47 Nicorette Gum - BUC Q2H PRN NICOTINE REPLACEMENT RX Multivit/Folic Acid/Iron 1 tab 04/30/16 10:00 05/02/16 10:15 Vitamins (Sjr) - PO 1 tab DAILY MIKI Administration Pseudoephedrine/Triprolidine 1 combo 04/29/16 12:47 Actifed - PO TID PRN NASAL CONGESTION Risperidone 2 mg 05/02/16 12:00 Risperdal - PO DAILY MIKI Thiamine HCl 100 mg 04/29/16 22:00 05/01/16 22:59 Vitamin B1 - PO Not Given HS MIKI Trimethoprim/Sulfamethoxazole 1 each 04/29/16 22:00 05/02/16 10:15 Bactrim Ds - PO 1 each BID MIKI Administration Current Side Effect: Yes (Stuffy nose) Lab tests ordered: Yes Lab tests reviewed: Yes Provider note:: Patient reports experiencing stuffy nose interfering with his sleep when he takes Risperdal and Trazadone at night. He requests not to take Trazadone and to take Risperdal in the morning. Total face to face time:: 25 Mental Status Exam - Mental Status Exam Alert and Oriented to: Time, Place, Person Cognitive Function: Fair Patient Appearance: Well Groomed Mood: Hopeful, Euthymic Affect: Appropriate Patient Behavior: Cooperative Speech Pattern: Clear Voice Loudness: Normal Thought Process: Intact Thought Disorder: Not Present Hallucinations: Denies Suicidal Ideation: Denies Insight/Judgement: Fair Sleep: Poorly Appetite: Good Muscle strength/Tone: Normal Gait/Station: Normal Psychiatric Treatment Plan - Problem List (1) Alcohol dependence Current Visit: Yes (2) Cocaine dependence Current Visit: No (3) Cannabis abuse Current Visit: No (4) Nicotine dependence Current Visit: No Qualifiers: Nicotine product type: cigarettes Substance use status: uncomplicated Qualified Code(s): F17.210 - Nicotine dependence, cigarettes, uncomplicated (5) History of incision and drainage Current Visit: Yes (6) ADHD (attention deficit hyperactivity disorder) Current Visit: Yes (7) MDD (major depressive disorder) Current Visit: Yes Initial treatment plan: 1) Discontinue Trazadone and Risperdal 2 mg po HS. 2) Start Risperdal 2 mg po daily. 3) Monitor progress
[2016-05-02] MEDS: risperiDONE 2 MG TABLET PO SCH (12:45)
[2016-05-02] MEDS: THIAMINE HCL 100 MG TABLET (FP) PO SCH (21:55)
[2016-05-02] MEDS: diphenhydrAMINE HCL 50 MG CAPSULE PO PRN (22:29)
[2016-05-03] MEDS: CEPHALEXIN MONOHYDRATE 500 MG CAPSULE (UD) PO SCH ×4 (06:42→23:35)
[2016-05-03] MEDS: BACITRACIN 0.9 GM PACKET TP SCH ×2 (10:25→21:07)
[2016-05-03] MEDS: risperiDONE 2 MG TABLET PO SCH (10:25)
[2016-05-03] MEDS: PRENATAL VITAMINS W/ FOLIC ACID TABLET (FP) PO SCH (10:25)
[2016-05-03] MEDS: SULFAMETHOXAZOLE/TRIMETHOPRIM 800MG/160MG D.S. TABLET PO SCH ×2 (10:25→21:07)
[2016-05-03] MEDS: DIVALPROEX SODIUM 250 MG TABLET E.C. (FP) PO SCH ×2 (10:25→21:07)
[2016-05-03] MEDS: diphenhydrAMINE HCL 50 MG CAPSULE PO PRN (20:26)
[2016-05-03] MEDS: THIAMINE HCL 100 MG TABLET (FP) PO SCH (21:07)
[2016-05-04] MEDS: CEPHALEXIN MONOHYDRATE 500 MG CAPSULE (UD) PO SCH ×3 (06:17→17:04)
[2016-05-04] MEDS: IBUPROFEN 400 MG TABLET (FP) PO PRN (07:34)
[2016-05-04] MEDS: SULFAMETHOXAZOLE/TRIMETHOPRIM 800MG/160MG D.S. TABLET PO SCH ×2 (10:08→22:06)
[2016-05-04] MEDS: risperiDONE 2 MG TABLET PO SCH (10:08)
[2016-05-04] MEDS: BACITRACIN 0.9 GM PACKET TP SCH ×2 (10:08→22:06)
[2016-05-04] MEDS: PRENATAL VITAMINS W/ FOLIC ACID TABLET (FP) PO SCH (10:08)
[2016-05-04] MEDS: DIVALPROEX SODIUM 250 MG TABLET E.C. (FP) PO SCH ×2 (10:09→22:06)
[2016-05-04] MEDS: THIAMINE HCL 100 MG TABLET (FP) PO SCH (22:07)
[2016-05-05] MEDS: CEPHALEXIN MONOHYDRATE 500 MG CAPSULE (UD) PO SCH ×4 (00:53→17:39)
[2016-05-05 06:49] VITALS: BP 133/73; PULSE 67; TEMP 97.9
[2016-05-05] MEDS: SULFAMETHOXAZOLE/TRIMETHOPRIM 800MG/160MG D.S. TABLET PO SCH ×2 (10:12→23:02)
[2016-05-05] MEDS: BACITRACIN 0.9 GM PACKET TP SCH ×2 (10:12→23:02)
[2016-05-05] MEDS: PRENATAL VITAMINS W/ FOLIC ACID TABLET (FP) PO SCH (10:12)
[2016-05-05] MEDS: risperiDONE 2 MG TABLET PO SCH (10:12)
[2016-05-05] MEDS: DIVALPROEX SODIUM 250 MG TABLET E.C. (FP) PO SCH ×2 (10:12→23:02)
[2016-05-05] MEDS: IBUPROFEN 400 MG TABLET (FP) PO PRN (10:13)
[2016-05-05] MEDS: diphenhydrAMINE HCL 50 MG CAPSULE PO PRN (20:57)
[2016-05-05] MEDS: THIAMINE HCL 100 MG TABLET (FP) PO SCH (23:02)
[2016-05-06] MEDS: CEPHALEXIN MONOHYDRATE 500 MG CAPSULE (UD) PO SCH (06:45)
--- NOTE | 2016-05-06 07:15 | PN ---
Psychiatric Progress Note Vital Signs: Vital Signs Period Temp Pulse Resp BP Sys/Landa Pulse Ox Last 24 Hr 18 Date of Session: 05/06/16 Chief Complaint:: Psychiatrist Discharge Note HPI: Patient addressing alcohol, Cocaine Dependence and Cannabis Abuse comorbid with Nicotine Dependence, ADHD and MDD Current Medications: Active Medications Generic Name Dose Route Start Last Admin Trade Name Freq PRN Reason Stop Dose Admin Acetaminophen 650 mg 04/29/16 12:47 05/01/16 12:37 Tylenol - PO 650 mg Q4H PRN Administration PAIN Al Hydroxide/Mg Hydroxide 30 ml 04/29/16 12:47 Mylanta Oral Suspension - PO Q6H PRN DYSPEPSIA Bacitracin 0.9 gm 04/29/16 22:00 05/05/16 23:02 Bacitracin - TP Not Given BID MIKI Cephalexin HCl 500 mg 04/29/16 18:00 05/06/16 06:45 Keflex - PO Not Given Q6HPO MIKI Diphenhydramine HCl 50 mg 04/29/16 12:47 05/05/16 20:57 Benadryl - PO 50 mg HSMR1 PRN Administration INSOMNIA Divalproex Sodium 250 mg 04/29/16 22:00 05/05/16 23:02 Depakote - PO Not Given BID MIKI Eucalyptus/Menthol/Phenol/Sorbitol 1 each 04/29/16 12:47 Cepastat Lozenge - MM Q4H PRN SORE THROAT Guaifenesin 10 ml 04/29/16 12:47 Robitussin Dm - PO Q6H PRN COUGH Hydroxyzine Pamoate 50 mg 04/29/16 12:47 Vistaril - PO Q4H PRN AGITATION Ibuprofen 400 mg 04/29/16 12:47 05/05/16 10:13 Motrin - PO 400 mg Q6H PRN Administration SEVERE PAIN Loperamide HCl 4 mg 04/29/16 12:47 Imodium - PO Q6H PRN DIARRHEA Magnesium Citrate 300 ml 04/29/16 12:47 Citroma - PO Q48H PRN CONSTIPATION Magnesium Hydroxide 30 ml 04/29/16 12:47 Milk Of Magnesia - PO DAILY PRN CONSTIPATION Nicotine 21 mg 04/29/16 14:17 05/05/16 10:12 Nicoderm Patch - TD Not Given DAILY MIKI Nicotine Polacrilex 2 mg 04/29/16 12:47 Nicorette Gum - BUC Q2H PRN NICOTINE REPLACEMENT RX Multivit/Folic Acid/Iron 1 tab 04/30/16 10:00 05/05/16 10:12 Vitamins (Sjr) - PO 1 tab DAILY MIKI Administration Pseudoephedrine/Triprolidine 1 combo 04/29/16 12:47 Actifed - PO TID PRN NASAL CONGESTION Risperidone 2 mg 05/02/16 12:00 05/05/16 10:12 Risperdal - PO 2 mg DAILY MIKI Administration Thiamine HCl 100 mg 04/29/16 22:00 05/05/16 23:02 Vitamin B1 - PO Not Given HS MIKI Trimethoprim/Sulfamethoxazole 1 each 04/29/16 22:00 05/05/16 23:02 Bactrim Ds - PO Not Given BID MIKI Current Side Effect: No Lab tests ordered: No Lab tests reviewed: Yes Provider note:: Patient has completed this program today. He is leaving early citing family emergency. Told [facility]ha underwriter that after he received a call last nightfrom his family about the matter he wanted to leave then but he was convinced by staff to wait till this morning. He is not willing to discuss with fha underwriter the nature of that family emergency.He has partially met his treatment goals and will continue to address his issues in outpatient treatment at [facility] at [address] [place] [address]. Told fha underwriter that from his participation in this program, he has learned to identify his triggers as far as People, Places and Things are concern. He responded well to Risperdal 2 mg po daily and Depakote 250 mg po BID. Scripts for 30 days supply is electronically transmitted to [facility] at [address] [place] [phone]. He is stable for discharge today Psychiatric Treatment Plan - Problem List (1) Alcohol dependence Current Visit: Yes (2) Cocaine dependence Current Visit: No (3) Cannabis abuse Current Visit: No (4) Nicotine dependence Current Visit: No Qualifiers: Nicotine product type: cigarettes Substance use status: uncomplicated Qualified Code(s): F17.210 - Nicotine dependence, cigarettes, uncomplicated (5) History of incision and drainage Current Visit: Yes (6) ADHD (attention deficit hyperactivity disorder) Current Visit: Yes (7) MDD (major depressive disorder) Current Visit: Yes
== END 2016-05-06 07:45 | disposition home or self-care (01) | DRG 772 ==
LOC: YASAS 09:22 → Y3W 12:36
PROVIDERS: ADMIT Psychiatry & Neurology Psychiatry; ATTEND Psychiatry & Neurology Psychiatry
PROC: HZ42ZZZ Group Counseling for Substance Abuse Treatment, Cognitive-Behavioral (ICD-10-PCS; principal; 2016-05-06)
DX: F10.230 Alcohol dependence with withdrawal, uncomplicated (principal); F14.20 Cocaine dependence, uncomplicated; F12.20 Cannabis dependence, uncomplicated; F17.210 Nicotine dependence, cigarettes, uncomplicated; F90.9 Attention-deficit hyperactivity disorder, unspecified type; F33.9 Major depressive disorder, recurrent, unspecified; L02.416 Cutaneous abscess of left lower limb; L02.415 Cutaneous abscess of right lower limb
CPT/HCPCS: 81003; 81015; 93005; 93010